=== PATIENT | male | born 1975 | race Caucasian/White ===

== ENCOUNTER 2021-02-14 10:04 | Day surgery (SDC) | payer MEDICAID ==
[2021-02-07 11:50] LABS: BASOPHILS % (AUTO) 0.8 % (0-1); EOSINOPHILS # (AUTO) 0.2 X10'3 (0-0.9); EOSINOPHILS % (AUTO) 2.9 % (0-6); LYMPHOCYTES # (AUTO) 2.4 X10'3 (1.1-4.8); LYMPHOCYTES % (AUTO) 36.9 % (21-51); MEAN CORPUSCULAR HEMOGLOBIN 30.1 PG (27.0-31.0); MEAN CORPUSCULAR HGB CONC 34.6 g/dL (33.0-36.5); MEAN PLATELET VOLUME 7.8 FL (7.4-10.4); MONOCYTES # (AUTO) 0.6 X10'3 (0-0.9); MONOCYTES % (AUTO) 9.2 % (2-12); NEUTROPHILS # (AUTO) 3.2 X10'3 (1.8-7.7); NEUTROPHILS % (AUTO) 50.2 % (42-75); PRE OP HEMATOCRIT 45.2 % (42.0-52.0); PRE OP HEMOGLOBIN 15.7 g/dL (14.0-17.9); PRE OP PLATELET COUNT 361 X10'3 (140-440); RED BLOOD COUNT 5.19 X10'6 (4.70-6.10)
[2021-02-07 11:57] LABS: ALBUMIN 3.7 G/DL (3.4-5.0); ALKALINE PHOSPHATASE 73 IU/L (46-116); BLOOD UREA NITROGEN 14 MG/DL (7-18); BUN/CREATININE RATIO 11.4 (5.4-32.0); CALCIUM 8.7 MG/DL (8.5-10.1); CHLORIDE 98 MMOL/L (99-107); CREATININE 1.23 MG/DL (0.60-1.10); PRE OP ANION GAP 1 (8-16); PRE OP AST 33 U/L (10-37); PRE OP BILIRUB, TOTAL 0.6 MG/DL (0.0-1.0); PRE OP GLUCOSE 92 MG/DL (70-104); TOTAL CARBON DIOXIDE 30.4 MMOL/L (24-32); TOTAL PROTEIN 7.4 G/DL (6.4-8.2); eGFR 64 ML/MIN
[2021-02-07 11:58] LABS: PRE OP SODIUM 129 MMOL/L (135-145)
[2021-02-07 11:59] LABS: PRE OP ALT 80 U/L (30-65)
[~2021-02-14] VITALS: Ht 188 cm; Wt 99.1 kg
[~2021-02-14 10:04] MED LIST: METO-384 PO
[2021-02-14 10:30] VITALS: BP_SYST 149; BP_DIAS 82; BP_DIAS 97
[2021-02-14] MEDS ORDERED: vancomycin 1,500 MG in NS 300ml IV soln IV ONE (11:04)
[2021-02-14] MEDS ORDERED: cefazolin/dext.iso 2gm/50ml 50 ML IV ONE (11:04)
[2021-02-14] MEDS ORDERED: DOCUMENT DATE & TIME OF BETA-BLOCKER PO ONE (11:04)
[2021-02-14] MEDS ORDERED: ringers solution, lacted 1,000 ML IV SCH ×2 (11:04→11:20)
[2021-02-14] MEDS ORDERED: famotidine 20mg tablet PO ONE (11:05)
[2021-02-14] MEDS ORDERED: proCHLORperazine 10 MG/2 ml inj IV PRN (11:20)
[2021-02-14] MEDS ORDERED: meperidine/PF 25mg/ml syringe IV PRN ×3 (11:20)
[2021-02-14] MEDS ORDERED: ondansetron/PF 4mg/2ml inj IV PRN (11:20)
[2021-02-14] MEDS ORDERED: morphine 2 MG/ML inj. syringe IV PRN (11:20)
[2021-02-14] MEDS ORDERED: morphine 4 MG/ML inj SYRINge IV PRN (11:20)
[2021-02-14 11:35] LABS: ISTAT HGB 15.6 g/dl (14.0-18.0); ISTAT IONIZED CALCIUM 1.23 mmol/L (1.03-1.32); ISTAT K 4.4 mmol/L (3.5-5.1)
[2021-02-14] MEDS ORDERED: methylPREDNISolone sod succ 125mg/2ml vial ONE (12:50)
[2021-02-14] MEDS ORDERED: BUPIVAcaine/PF 2.5 mg/ml (0.25%) 30ml vial ONE (12:50)
[2021-02-14] MEDS ORDERED: fentaNYL/PF 50MCG/1 ML 2ML syringe ONE (14:03)
[2021-02-14] MEDS ORDERED: midazolam 1 mg/ML 2ml injection ONE (14:03)
[2021-02-14] MEDS ORDERED: LIDOcaine 0.5% (5mg/ml) 50ml vial ONE (14:07)
[2021-02-14 14:51] VITALS: BP 151/96
--- NOTE | 2021-02-14 14:51 | NUR ---
Received from OR via [facility] IN STABLE CONDITION , accompanied by Anesthesiologist and RIBBON TIER report given by RIBBON TIER AND Anesthesiolgist. Addendum: 02/14/21 at 1531 by Halina Escobar RN Amended: Links added.
[2021-02-14 15:00] VITALS: BP 142/89
[2021-02-14 15:10] VITALS: BP 148/110
[2021-02-14 15:20] VITALS: BP 145/98
[2021-02-14 15:30] VITALS: BP 147/90
--- NOTE | 2021-02-14 15:31 | NUR ---
PATIENT DISCHARGED FROM PACU IN STABLE CONDITION AFTER WRITTEN AND VERBAL DISCHARGE INTRUCTIONS GIVEN. PATIENT GAVE VERBAL UNDERSTANDING OF INSTRUCTIONS GIVEN. PATIENT LEFT FACILITY VIA WHEELCHAIR WITH RN. Addendum: 02/14/21 at 1543 by Halina Escobar RN Amended: Links added.
== END 2021-02-14 15:31 | disposition home or self-care (01) ==
LOC: PAS 10:04
PROVIDERS: ATTEND Orthopaedic Surgery
DX: G56.01 Carpal tunnel syndrome, right upper limb (principal); G56.21 Lesion of ulnar nerve, right upper limb; I10 Essential (primary) hypertension; E66.8 Other obesity; Z68.28 Body mass index [BMI] 28.0-28.9, adult; Z20.822 Contact with and (suspected) exposure to COVID-19; Z79.899 Other long term (current) drug therapy; Z72.89 Other problems related to lifestyle; Z87.891 Personal history of nicotine dependence
CPT/HCPCS: 36415; 64719; 64721; 80047; 80053; 82948; 85025; 87635; 93005; A6222; C9803; J2001; J2250; J2930; J3010; J3370; J3490; J7040; Z7506; Z7512; A4215; A4618; A6449; A6455; A7000; J7120

== ENCOUNTER 2022-02-05 12:37 | Emergency (ER) | payer MEDICAID ==
[~2022-02-05] VITALS: Ht 188 cm; Wt 100.0 kg
[2022-02-05 13:48] LABS: ALANINE AMINOTRANSFERASE 64 U/L (12-78); ALBUMIN 3.9 G/DL (3.4-5.0); ALBUMIN/GLOBULIN RATIO 1.1 (1.1-1.5); ALKALINE PHOSPHATASE 73 IU/L (46-116); ANION GAP 5 (8-16); ASPARTATE AMINO TRANSFERASE 31 U/L (10-37); BILIRUBIN,TOTAL 0.4 MG/DL (0.1-1.0); BLOOD UREA NITROGEN 15 MG/DL (7-18); BUN/CREATININE RATIO 13.3 (5.4-32.0); CALCIUM 9.1 MG/DL (8.5-10.1); CHLORIDE 103 MMOL/L (99-107); CREATININE 1.13 MG/DL (0.60-1.10); GLUCOSE 102 MG/DL (70-104); POTASSIUM 4.2 MMOL/L (3.5-5.1); SODIUM 138 MMOL/L (135-145); TOTAL CARBON DIOXIDE 29.9 MMOL/L (24-32); TOTAL PROTEIN 7.6 G/DL (6.4-8.2); eGFR 70 ML/MIN
[2022-02-05 13:51] LABS: BASOPHILS % (AUTO) 0.7 % (0-1); EOSINOPHILS # (AUTO) 0.2 X10'3 (0-0.9); EOSINOPHILS % (AUTO) 2.4 % (0-6); HEMATOCRIT 45.6 % (42.0-52.0); LYMPHOCYTES # (AUTO) 2.1 X10'3 (1.1-4.8); LYMPHOCYTES % (AUTO) 29.9 % (21-51); MEAN CORPUSCULAR HEMOGLOBIN 30.4 PG (27.0-31.0); MEAN CORPUSCULAR HGB CONC 35.1 g/dL (33.0-36.5); MEAN CORPUSCULAR VOLUME 86.7 FL (78-98); MEAN PLATELET VOLUME 7.6 FL (7.4-10.4); MONOCYTES # (AUTO) 0.8 X10'3 (0-0.9); MONOCYTES % (AUTO) 10.7 % (2-12); NEUTROPHILS % (AUTO) 56.3 % (42-75); PLATELET COUNT 382 X10'3 (140-440); RED BLOOD COUNT 5.27 X10'6 (4.70-6.10); RED CELL DISTRIBUTION WIDTH 12.9 % (11.5-14.5); WHITE BLOOD COUNT 7.2 X10'3 (4.5-11.0)
[2022-02-05] MEDS ORDERED: aspirin 325mg tablet PO ONE (14:00)
[2022-02-05] MEDS ORDERED: acetaminophen 325mg tablet PO ONE (14:00)
[2022-02-05 16:21] VITALS: BP 121/77
== END 2022-02-05 16:25 | disposition home or self-care (01) ==
LOC: ER 12:37
DX: R07.89 Other chest pain (principal); R50.9 Fever, unspecified; R11.2 Nausea with vomiting, unspecified
CPT/HCPCS: 36415; 71045; 80053; 83880; 84484; 85025; 93005; 99285